=== PATIENT | male | born 1975 | race Hispanic/Latino ===

== ENCOUNTER → 2024-05-27 | Day surgery (SDC) | payer OTHER ==
[~2024-05-27] MED LIST: HYOSCYAMINE SULFATE 0.5 MG/ML INJ ONE; IRON325 M1 PO; PROPOFOL IV EMULSION 10 MG/ML 20 ML VIAL ONE; PROPOFOL IV EMULSION 100 ML IV ONE; VITAMIN B121000 MCG PO
[2024-05-27] MEDS: LACTATED RINGER'S 1,000 ML ONE (10:49)
[2024-05-27 13:20] VITALS: BP 122/72; PULSE 69; RESP 16; O2SAT 100
== END | disposition home or self-care (01) ==
LOC: OR 09:49
PROVIDERS: ATTEND Internal Medicine Gastroenterology
DX: K29.50 Unspecified chronic gastritis without bleeding (principal); K20.90 Esophagitis, unspecified without bleeding; K21.9 Gastro-esophageal reflux disease without esophagitis; R19.7 Diarrhea, unspecified; K64.8 Other hemorrhoids; Z71.3 Dietary counseling and surveillance; R63.0 Anorexia; E61.1 Iron deficiency; G47.33 Obstructive sleep apnea (adult) (pediatric); Z71.89 Other specified counseling; E66.01 Morbid (severe) obesity due to excess calories; R73.03 Prediabetes; I45.10 Unspecified right bundle-branch block; E78.5 Hyperlipidemia, unspecified; F41.9 Anxiety disorder, unspecified; Z88.6 Allergy status to analgesic agent; Z01.810 Encounter for preprocedural cardiovascular examination; Z68.38 Body mass index [BMI] 38.0-38.9, adult
CPT/HCPCS: 43239; 43450; 45378; 93005; J1980; J2470; J2704; J7121